=== PATIENT | female | born 1935 | race Caucasian/White ===

== ENCOUNTER → 2018-11-26 08:40 | Outpatient (CLI) | payer MEDICARE, OTHER ==
[2011-05-28 13:55] VITALS: BMI 29.5
== END | disposition home or self-care (01) ==
LOC: D.US 08:00 → D.NM 09:15
PROVIDERS: ATTEND Internal Medicine Nephrology
DX: E21.3 Hyperparathyroidism, unspecified (principal); E83.52 Hypercalcemia

== ENCOUNTER → 2019-01-04 08:35 | Outpatient (CLI) | payer MEDICARE, OTHER ==
[2011-05-28 13:55] VITALS: BMI 29.5
== END | disposition home or self-care (01) ==
LOC: D.NM 08:35
PROVIDERS: ATTEND Surgery
DX: E21.0 Primary hyperparathyroidism (principal)